=== PATIENT | male | born 1960 | race Caucasian/White ===

== ENCOUNTER → 2019-01-18 | Outpatient (CLI) | payer MEDICAID ==
--- NOTE | 2019-01-18 15:09 | RADIOLOGY REPORT (SQ) ---
EXAM DESCRIPTION: C SP 4 OR 5 VIEWS COMPLETED DATE/TIME: 01/18/2019 2:36 pm REASON FOR STUDY: CHRONIC CERVICAL PAIN, CHRONIC RADICULAR PAIN OF LOWER BACK M54.16 RADICULOPATHY, LUMBAR REGION M54.2 CERVICALGIA COMPARISON: None. NUMBER OF VIEWS: Five views. TECHNIQUE: AP, lateral, obliques and odontoid radiographic images acquired of the cervical spine. LIMITATIONS: None. FINDINGS: MINERALIZATION: Normal. ALIGNMENT: Anatomic. VERTEBRAE: The C7 vertebral body is not well visualized. The visualized vertebral bodies of normal height. DISCS: Mild to moderate disc space narrowing at C5-C6. No significant osteophytes or sclerosis. FOR SALOMON: Evaluation of the foramina on the right is limited due to patient positioning. Mild to moder ate foraminal narrowing suggested at multiple levels on the left. LATERAL AND POSTERIOR ELEMENTS: Facets, lateral masses and spinous processes without significant find ings. HARDWARE: None in the spine. SOFT TISSUES: No masses or calcifications. Lung apices clear. OTHER: The patient is edentulous. IMPRESSION: 1. Degenerative disc disease at C5-C6. Mild to moderate multilevel foraminal narrowing suggested on the left. 2. The C7 vertebra is not well visualized on the obtained study. TECHNICAL DOCUMENTATION: JOB ID: [id number] [employer]- All Rights Reserved Reading location - IP/workstation name: [email or web address]
--- NOTE | 2019-01-18 15:09 | RADIOLOGY REPORT (SQ) ---
EXAM DESCRIPTION: LUMBAR SPINE COMPLETE COMPLETED DATE/TIME: 01/18/2019 2:36 pm REASON FOR STUDY: CHRONIC CERVICAL PAIN, CHRONIC RADICULAR PAIN OF LOWER BACK M54.16 RADICULOPATHY, LUMBAR REGION M54.2 CERVICALGIA COMPARISON: None. NUMBER OF VIEWS: Five views including obliques. TECHNIQUE: AP, lateral, oblique, and sacral radiographic images acquired of the lumbar spine. LIMITATIONS: None. FINDINGS: MINERALIZATION: Normal. SEGMENTATION: Normal. No transitional anatomy. ALIGNMENT: Normal. VERTEBRAE: Maintained height. No fracture or worrisome bone lesion. DISCS: Mild multilevel disc space narrowing. Very small anterior osteophytes. Degenerative changes involve the visualized lower thoracic spine. POSTERIOR ELEMENTS: Pedicles and facets are intact. No pars defect or posterior arch defects. HARDWARE: None in the spine. PARASPINAL SOFT TISSUES: Normal. PELVIS: Intact as visualized. No fractures or worrisome bone lesions. SI joints intact. OTHER: Mild atherosclerotic changes involving the abdominal aorta. IMPRESSION: 1. Degenerative mild changes as above. 2. No acute osseous findings. TECHNICAL DOCUMENTATION: JOB ID: [id number] [employer]- All Rights Reserved Reading location - IP/workstation name: [email or web address]
== END ==
LOC: OD 14:01
PROVIDERS: ATTEND Nurse Practitioner Family
DX: M54.16 Radiculopathy, lumbar region (principal); M54.2 Cervicalgia
CPT/HCPCS: 72050; 72110